=== PATIENT | female | born 1960 | race Native Hawaiian/Other Pacific Islander ===

== ENCOUNTER 2017-07-12 08:29 | Outpatient (CLI) | payer OTHER | END 2017-07-12 19:27 | disposition home or self-care (01) | LOC: MAMMO 08:29 | DX: Z12.31 Encounter for screening mammogram for malignant neoplasm of breast (principal) ==

== ENCOUNTER 2017-08-04 13:24 | Outpatient (CLI) | payer OTHER | END 2017-08-04 19:01 | disposition home or self-care (01) | LOC: MAMMO 13:24 | DX: R92.1 Mammographic calcification found on diagnostic imaging of breast (principal) ==